=== PATIENT | female | born 1950 | race African-American/Black ===

== ENCOUNTER 2017-06-02 10:42 | Emergency (ER) | payer MEDICARE ==
[2017-06-02] MEDS ORDERED: predniSONE 10 MG TAB ONE (11:52)
--- NOTE | 2017-06-02 12:02 | RAD ---
TWO VIEWS CHEST: Date: 06-02-17 Comparison: 01-02-17 History: Yellow productive cough, congestion, sore throat, myalgia, chills. FINDINGS: No pneumothorax or pleural fluid. No focal consolidation or alveolar edema. Heart and mediastinal con tours are grossly unremarkable. There is mild degenerative change within the mid thoracic spine. IMPRESSION: No acute findings. POS: [facility]
== END 2017-06-02 12:03 | disposition home or self-care (01) ==
LOC: SCSER 10:42
DX: J40 Bronchitis, not specified as acute or chronic (principal); J98.01 Acute bronchospasm; I10 Essential (primary) hypertension; Z79.899 Other long term (current) drug therapy; Z79.82 Long term (current) use of aspirin
CPT/HCPCS: 71046; J7512

== ENCOUNTER 2017-07-27 08:31 | Outpatient (CLI) | payer MEDICARE | END 2017-07-27 08:32 | disposition home or self-care (01) | LOC: BICULT 08:31 | PROVIDERS: ATTEND Internal Medicine Nephrology | DX: I12.9 Hypertensive chronic kidney disease with stage 1 through stage 4 chronic kidney disease, or unspecified chronic kidney disease (principal); N18.3 Chronic kidney disease, stage 3 (moderate) | CPT/HCPCS: 76700; 76770 ==

== ENCOUNTER 2017-08-17 10:13 | Emergency (ER) | payer MEDICARE ==
--- NOTE | 2017-08-18 12:46 | RAD ---
PA AND LATERAL CHEST: Indication: Productive cough. FINDINGS: No airspace consolidation, pleural effusion, or pneumothorax is evident. Heart size is within normal limits. There are mild vascular calcifications involving the thoracic aorta. There is multilevel spon dylosis of the thoracic spine. The examination does not appear appreciably changed from the compariso n dated 06-02-17. IMPRESSION: No acute cardiopulmonary abnormalities. POS: [facility]
== END 2017-08-17 11:25 | disposition home or self-care (01) ==
LOC: SCSER 10:13 → EEVIPCON 10:13 → SCSER 11:25
DX: J20.9 Acute bronchitis, unspecified (principal); E78.5 Hyperlipidemia, unspecified; I10 Essential (primary) hypertension; Z79.82 Long term (current) use of aspirin; Z79.899 Other long term (current) drug therapy
CPT/HCPCS: 71046

== ENCOUNTER 2018-01-16 12:25 | Emergency (ER) | payer MEDICARE ==
[2018-01-16] MEDS ORDERED: Morphine 4 MG/ML VIAL ONE (12:57)
--- NOTE | 2018-01-16 15:07 | CT ---
ABDOMEN AND PELVIC CT SCAN WITHOUT IV CONTRAST: HISTORY: A 67-year-old female with a history of left flank pain, low back pain for 1 week. FINDINGS: The lung bases are clear. The visualized liver, gallbladder, pancreas, spleen, and adrenal glands, a re unremarkable. Multiple bilateral renal cysts. No renal calculus or acute obstruction. Very m ild nonspecific fat stranding in the central mesentery. No evidence for large or small bowel obstruc tion. No CT evidence for acute appendicitis. Status post hysterectomy. IMPRESSION: No renal calculus or obstruction. Status post hysterectomy and appendectomy, no evidence for acut e appendicitis or obstructing calculus or other acute process. POS: [facility]
== END 2018-01-16 13:40 | disposition home or self-care (01) ==
LOC: SCSER 12:25
DX: S33.5XXA Sprain of ligaments of lumbar spine, initial encounter (principal); E78.5 Hyperlipidemia, unspecified; I10 Essential (primary) hypertension; X58.XXXA Exposure to other specified factors, initial encounter
CPT/HCPCS: 74176; 96372; J2270

== ENCOUNTER 2019-01-05 12:21 | Outpatient (CLI) | payer MEDICARE ==
--- NOTE | 2019-01-05 14:11 | RAD ---
CHEST TWO VIEWS: 01/05/19 HISTORY: Cough. COMPARISON: 08/17/17. FINDINGS: The cardiac silhouette and pulmonary vasculature are unremarkable. Mediastinum is midline. No conflu ent air space consolidation, pneumothorax, or pleural fluid. IMPRESSION: No active cardiopulmonary abnormalities are demonstrated. POS: [facility]
--- NOTE | 2019-01-05 14:39 | RAD ---
RIGHT HAND THREE VIEWS: 01/05/19 HISTORY: Hand pain. Lungs appear slightly demineralized. There is some mild arthritic changes of the first carpometacarpa l joint space. There is suggestion of some radiocarpal joint space narrowing. This would be better as sessed with some wrist films due to the positioning. Minimal arthritic changes of the interphalangeal joints. There is no bony erosive change. 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 Wri st films would be suggested for better assessment of this due to less than optimum positioning on the se hand films. POS: [facility]
--- NOTE | 2019-01-05 14:41 | RAD ---
LEFT HAND THREE VIEWS: 01/05/19 HISTORY: Hand pain. Mild arthritic changes of the first carpometacarpal joint space are seen. There is radiocarpal joint space narrowing. Minimal arthritic changes of the interphalangeal joints are noted. IMPRESSION: Mild arthritic changes of the hand. Wrist films may be helpful in better assessment of the radiocarpa l joint space narrowing. POS: [facility]
--- NOTE | 2019-01-17 08:50 | MMO ---
Bilateral MAMMO Bilat Screen [facility]. CLINICAL HISTORY: Patient is 68 years old and is seen for screening. The patient has no family history of breast cancer. The patient has no personal history of cancer. The patient has a history of right needle biopsy at age 28 - benign. VIEWS: The views performed were: bilateral craniocaudal with tomosynthesis; bilateral mediolateral oblique with tomosynthesis; and right exaggerated craniocaudal. FILMS COMPARED: The present examination has been compared to prior imaging studies performed at [facility] on 11/30/2012, 03/19/2015 and 04/10/2017. MAMMOGRAM FINDINGS: The breasts are heterogeneously dense, which could obscure a lesion on mammography. There are benign appearing calcifications seen in both breasts. There are no suspicious masses, suspicious calcifications, or new areas of architectural distortion. IMPRESSION: THERE IS NO MAMMOGRAPHIC EVIDENCE OF MALIGNANCY. A ROUTINE FOLLOW-UP MAMMOGRAM IN 1 YEAR IS RECOMMENDED. THE RESULTS OF THIS EXAM WERE SENT TO THE PATIENT. ACR BI-RADS Category 2 - Benign finding MAMMOGRAPHY NOTE: 1. A negative mammogram report should not delay a biopsy if a dominant of clinically suspicious mass is present. 2. Approximately 10% to 15% of breast cancers are not detected by mammography. 3. Adenosis and dense breasts may obscure an underlying neoplasm. Reported by: SEGUN PURI MD Electonically Signed: [id number]
== END 2019-01-05 12:22 | disposition home or self-care (01) ==
LOC: BICRAD 12:21
PROVIDERS: ATTEND Internal Medicine
DX: Z12.31 Encounter for screening mammogram for malignant neoplasm of breast (principal); R05 Cough; M79.641 Pain in right hand; M79.642 Pain in left hand; M19.042 Primary osteoarthritis, left hand; M19.041 Primary osteoarthritis, right hand; Z91.89 Other specified personal risk factors, not elsewhere classified
CPT/HCPCS: 36415; 71046; 77063; 77067; 80053; 81003; 83036; 85025; 86160; 86225; 86235; 86376; 87086

== ENCOUNTER 2020-03-23 11:54 | Outpatient (CLI) | payer MEDICARE ==
--- NOTE | 2020-03-23 12:30 | MMO ---
Bilateral MAMMO Bilat Screen [facility]. CLINICAL HISTORY: Patient is 69 years old and is seen for screening. The patient has no family history of breast cancer. The patient has no personal history of cancer. The patient has a history of right needle biopsy at age 28 - benign. VIEWS: The views performed were: bilateral craniocaudal with tomosynthesis and bilateral mediolateral oblique with tomosynthesis. FILMS COMPARED: The present examination has been compared to prior imaging studies performed at [facility] on 01/05/2019, and at [facility] on 03/19/2015 and 04/10/2017. This study has been interpreted with the assistance of computer-aided detection. MAMMOGRAM FINDINGS: The breasts are extremely dense, which may lower the sensitivity of mammography. There are stable benign appearing calcifications seen in both breasts. There are no suspicious masses, suspicious calcifications, or new areas of architectural distortion. IMPRESSION: THERE IS NO MAMMOGRAPHIC EVIDENCE OF MALIGNANCY. A ROUTINE FOLLOW-UP MAMMOGRAM IN 1 YEAR IS RECOMMENDED. THE RESULTS OF THIS EXAM WERE SENT TO THE PATIENT. ACR BI-RADS Category 2 - Benign finding MAMMOGRAPHY NOTE: 1. A negative mammogram report should not delay a biopsy if a dominant of clinically suspicious mass is present. 2. Approximately 10% to 15% of breast cancers are not detected by mammography. 3. Adenosis and dense breasts may obscure an underlying neoplasm. Reported by: HILLARY BRODERICK MD Electonically Signed: [id number]
== END 2020-03-23 11:55 | disposition home or self-care (01) ==
LOC: BICMAMMO 11:54
PROVIDERS: ATTEND Family Medicine
DX: Z12.31 Encounter for screening mammogram for malignant neoplasm of breast (principal); Z91.89 Other specified personal risk factors, not elsewhere classified
CPT/HCPCS: 77063; 77067

== ENCOUNTER 2020-04-20 07:38 | Outpatient (CLI) | payer MEDICARE ==
--- NOTE | 2020-04-20 08:43 | BD ---
DEXA BONE DENSITY STUDY: Date: 04/20/2020 HISTORY: 69-year-old postmenopausal female for screening. FINDINGS: Lumbar Spine: BMD (g/cm2) L1 0.799 T-Score: -1.7 L2 0.824 T-Score: -1.9 L3 0.943 T-Score: -1.3 L4 1.912 T-Score: -0.4 L1-L4 0.905 T-Score: -1.3 Left Femoral Neck: 0.691 T-Score: -1.4 Total Femur: 0.779 T-Score: -1.3 IMPRESSION: Osteopenia. This patient has a 10 year WHO fracture risk for a major osteoporotic fracture of 15% and for a hip f racture of 2.0%. POS: [facility]
== END 2020-04-20 07:39 | disposition home or self-care (01) ==
LOC: BICMAMMO 07:38
PROVIDERS: ATTEND Family Medicine
DX: Z13.820 Encounter for screening for osteoporosis (principal); M85.89 Other specified disorders of bone density and structure, multiple sites
CPT/HCPCS: 77080

== ENCOUNTER 2021-02-07 13:56 | Outpatient (CLI) | payer MEDICARE | END 2021-02-07 13:57 | disposition home or self-care (01) | LOC: BICULT 13:56 | PROVIDERS: ATTEND Family Medicine | DX: E05.31 Thyrotoxicosis from ectopic thyroid tissue with thyrotoxic crisis or storm (principal); E04.2 Nontoxic multinodular goiter | CPT/HCPCS: 76536 ==

== ENCOUNTER 2021-05-24 06:49 | Outpatient (CLI) | payer MEDICARE | END 2021-05-24 06:50 | disposition home or self-care (01) | LOC: BICULT 06:49 | PROVIDERS: ATTEND Family Medicine | DX: N18.31 Chronic kidney disease, stage 3a (principal); N28.1 Cyst of kidney, acquired | CPT/HCPCS: 76770; 93975 ==

== ENCOUNTER 2021-05-24 07:36 | Outpatient (CLI) | payer MEDICARE | END 2021-05-24 07:37 | disposition home or self-care (01) | LOC: BICMAMMO 07:36 | PROVIDERS: ATTEND Family Medicine | DX: Z12.31 Encounter for screening mammogram for malignant neoplasm of breast (principal); Z91.89 Other specified personal risk factors, not elsewhere classified | CPT/HCPCS: 77063; 77067 ==

== ENCOUNTER 2021-10-28 10:35 | Outpatient (CLI) | payer MEDICARE | END 2021-10-28 10:36 | disposition home or self-care (01) | LOC: BICRAD 10:35 | PROVIDERS: ATTEND Family Medicine | DX: M54.42 Lumbago with sciatica, left side (principal); M47.816 Spondylosis without myelopathy or radiculopathy, lumbar region | CPT/HCPCS: 72100 ==

== ENCOUNTER → 2022-08-13 | Outpatient (CLI) | payer MEDICARE | LOC: SLEEPLAB 19:00 | PROVIDERS: ATTEND Family Medicine | DX: G47.33 Obstructive sleep apnea (adult) (pediatric) (principal); G47.9 Sleep disorder, unspecified; G47.61 Periodic limb movement disorder; G25.81 Restless legs syndrome; R51.9 Headache, unspecified; E11.9 Type 2 diabetes mellitus without complications; E66.9 Obesity, unspecified; R06.83 Snoring; I49.9 Cardiac arrhythmia, unspecified; I25.10 Atherosclerotic heart disease of native coronary artery without angina pectoris; I10 Essential (primary) hypertension; G47.00 Insomnia, unspecified; G47.10 Hypersomnia, unspecified; Z68.34 Body mass index [BMI] 34.0-34.9, adult | CPT/HCPCS: 95810 ==

== ENCOUNTER 2022-09-15 10:32 | Outpatient (CLI) | payer OTHER | END 2022-09-15 10:33 | disposition home or self-care (01) | LOC: BICULT 10:32 | PROVIDERS: ATTEND Family Medicine | DX: E04.1 Nontoxic single thyroid nodule (principal); E04.2 Nontoxic multinodular goiter | CPT/HCPCS: 76536 ==

== ENCOUNTER 2023-11-20 10:02 | Outpatient (CLI) | payer MEDICARE | END 2023-11-20 10:03 | disposition home or self-care (01) | LOC: BICMAMMO 10:02 | PROVIDERS: ATTEND Family Medicine | DX: Z12.31 Encounter for screening mammogram for malignant neoplasm of breast (principal); Z13.820 Encounter for screening for osteoporosis; N95.9 Unspecified menopausal and perimenopausal disorder; Z91.89 Other specified personal risk factors, not elsewhere classified; M85.89 Other specified disorders of bone density and structure, multiple sites | CPT/HCPCS: 77063; 77067; 77080 ==